=== PATIENT | male | born 1980 | race Caucasian/White ===

== ENCOUNTER 2024-07-05 05:45 | Day surgery (SDC) | payer BC ==
[2024-07-01 16:10] VITALS: BP 137/79
[2024-07-01 16:21] VITALS: BP 137/79
[~2024-07-05] VITALS: Ht 182.9 cm; Wt 95.5 kg
[~2024-07-05 05:45] MED LIST: LACTATED RINGER'S 1,000 ML IV SCH
[2024-07-05 05:58] VITALS: BP 121/75
[2024-07-05] MEDS ORDERED: propofoL 200 MG/20 ML VIAL ONE (06:40)
[2024-07-05] MEDS ORDERED: ondansetron HCL 4 MG/2 ML VIAL ONE (06:40)
[2024-07-05] MEDS ORDERED: LACTATED RINGER'S 1,000 ML IV ONE (06:40)
[2024-07-05] MEDS ORDERED: FAMOTIDINE 20 MG/ 2 ML VIAL ONE (06:40)
[2024-07-05] MEDS ORDERED: METOCLOPRAMIDE HCL 10 MG/2 ML SDV ONE (06:40)
[2024-07-05] MEDS ORDERED: KETOROLAC TROMETHAMINE 30 MG/ML VIAL ONE (06:40)
[2024-07-05] MEDS ORDERED: DEXAMETHASONE SOD PHOS 4 MG/ML VIAL ONE (06:40)
[2024-07-05] MEDS ORDERED: fentaNYL citrate 100 MCG/2 ML VIAL ONE (06:40)
[2024-07-05] MEDS ORDERED: MIDAZOLAM HCL 2 MG/2 ML VIAL ONE (06:41)
[2024-07-05] MEDS ORDERED: LIDOCAINE HCL 2% 5 ML SDV ONE (06:41)
[2024-07-05] MEDS ORDERED: LIDOCAINE HCL 1% 5 ML SDV INJ ONE (07:00)
[2024-07-05] MEDS ORDERED: IBLOOD GLUCOSE TEST STRIP 1 EA TEST VI PRN ×2 (07:00→07:15)
[2024-07-05] MEDS ORDERED: CEFAZOLIN SODIUM 2 GM/20 ML SYR IV SCH (07:00)
[2024-07-05] MEDS ORDERED: ondansetron HCL 4 MG/2 ML VIAL IV PRN ×2 (07:15→07:30)
[2024-07-05] MEDS ORDERED: NALOXONE HCL 0.4 MG SYR IV PRN (07:15)
[2024-07-05] MEDS ORDERED: METOCLOPRAMIDE HCL 10 MG/2 ML SDV IV PRN (07:15)
[2024-07-05] MEDS ORDERED: fentaNYL citrate 50 MCG/ML SDV IV PRN (07:15)
[2024-07-05] MEDS ORDERED: MORPHINE SULFATE 10 MG/ML VIAL IV PRN (07:15)
[2024-07-05] MEDS ORDERED: PROCHLORPERAZINE EDISYLATE 10 MG/2 ML VIAL IV PRN (07:15)
[2024-07-05] MEDS ORDERED: droPERidol 5 MG/2 ML VIAL IV PRN (07:15)
[2024-07-05] MEDS ORDERED: HYDROmorphone HCL 1 MG/ML SYR IV PRN (07:30)
[2024-07-05] MEDS ORDERED: OXYCODONE/APAP 5/325 TAB PO PRN (07:30)
[2024-07-05] MEDS ORDERED: MORPHINE SULFATE 10 MG/ML VIAL ONE (07:36)
--- NOTE | 2024-07-05 07:43 | NUR ---
PT GONE FOR PROCEDURE. VISITED WITH FAMILY MEMBER IN ROOM. NO SIGNS OF ANXIETY, DENIED IMMEDIATE NEEDS. BATTERY CHECKER PROVIDED SUPPORTIVE PRESENCE, HOSPITALITY, PRAYER, FACILITATED INTERACTION WITH THERAPY ANIMAL.
[2024-07-05 09:50] VITALS: BP 143/79
--- NOTE | 2024-07-05 09:50 | NUR ---
PT ARRIVED BACK TO DS AAOX3 ON RA. PT ANSWERS QUESTIONS APPROPRIATELY AND IS ABLE TO MAKE HIS NEEDS KNOWN. REPORT RECIEVED FROM WEATHERIZATION COORDINATOR. PTS IN ROOM UPON HIS RETURN. VS TAKEN. IV SITE ASSESSED, PATENT, AND INFUSING LR PER ORDERS. SURGICAL SITE VISUALIZED WITH WEATHERIZATION COORDINATOR. SURGICAL SITE IS WELL APPROXIMATED WITH DERMABOND. GAUZE FLUFFS IN PLACE OVER INCISION AND JOCK STRAP IN PLACE. NO DRAINAGE IS SEEN. ICE PRESENT TO SCROTUM WELL. PT DENIES PAIN OR NAUSEA WHEN ASKED. PT GIVEN JUICE, ICE WATER, AND PUDDING. ALL QUESTIONS ANSWERED. CALL LIGHT WITHIN REACH, BED IN LOW POSITION, WHEELS LOCKED, BILAT RAILS IN PLACE FOR SAFETY.
--- NOTE | 2024-07-05 10:03 | NUR ---
07/05/24 Carmen Tijerina 0921- PT ARRIVES TO THE PACU WITH A NATURAL AIRWAY. PT IS MOVING ARMS AROUND AND REMOVING HIS MASK INDEPENDENTLY. PT IS NOT FOLLOWING DIRECTIONS. MONITORS PUT IN PLACE. PT IS IN SEMI FOWLERS. LR INFUSING IN R HAND. VSS. SCROTUM SHOWS NO DRAINAGE. 0925- PT IS ABLE TO FOLLOW DIRECTIONS. PT REORIENTED TO PACU. PT DENIES PAIN AND NAUSEA. PT RESTING. 0930- PT IS GIVEN ICE FOR OVER THE SCROTUM PER MD. PT CONTINUES TO DENY PAIN AND NAUSEA. 0950- PT IS BROUGHT BACK TO DS. PT GIVEN APPLE JUICE AND PUDDING. PT CONTINUES TO DENY PAIN AND NAUSEA. VITAL SIGNS ARE STABLE. BEDSIDE REPORT GIVEN TO REBECA ATKINSON. NO QUESTIONS OR CONCERNS. SURGICAL INCISION ASSESSED WITH GABRIELE RN, AND NO DRAINAGE NOTED. CARE FOR PT HANDED OVER AT THIS TIME.
[2024-07-05] MEDS ORDERED: CEPHALEXIN500 M1 PO (10:16)
[2024-07-05] MEDS ORDERED: OXYCODONE HCL5 MG PO (10:17)
[2024-07-05] MEDS ORDERED: SEVOFLURANE 250 ML BTL INH ONE (10:19)
[2024-07-05 10:58] VITALS: BP 142/88
--- NOTE | 2024-07-05 11:50 | NUR ---
PT DISCHARGED TO HOME WITH INSTRUCTIONS ON MEDICATION, FOLLOW-UP, ACTIVITY, WHEN TO CONTACT THE MD, WOUND CARE, AND DIET. PT VERBALIZED UNDERSTANDING AND LEFT FOR HOME WITH AND ALL BELONGINGS.
--- NOTE | 2024-07-08 16:46 | PATH ---
[facility] [address] [place], [place] [address] Signed SPECIMEN(S): A LEFT TESTIS SPECIMEN SOURCE: A. 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 COMMENT: As part of [email or web address] Quality Improvement Program, this case was reviewed by another member of our pathology staff. JVR:CRYSTAL:romeo MICROSCOPIC EXAMINATION: Histologic sections of all submitted blocks are examined by light microscopy. These findings, together with the gross examination, support the pathologic diagnosis. GROSS DESCRIPTION: The specimen, labeled and designated "Ian Locke, left testicle," is received in formalin and consists of 3.2 x 2.2 x 1.9 cm testis, 4.5 x 1.2 x 0.7 cm epididymis, and the specimen weighs 8 g. The tunica vaginalis pink-zhong membranous with a few adhesions and the tunica albuginea white and smooth. The testis bivalved to reveal orange stringy cut surfaces. No grossly identifiable lesions seen. Bulb Planter sections are submitted. Cassette Summary: (A1) testicular parenchyma with respect to epididymis (A2-A3) additional sales representative uniforms sections of the testis JM (under the direct supervision of a pathologist) The Gross Description was prepared using a voice recognition system. The report was reviewed for accuracy; however, sound-alike word errors, addition and/or deletions may occur. If there is any question about this report, please contact Client Services. PERFORMING LABORATORY: Technical component was performed by [email or web address], Clau Smith, PATIENT NAME: HENRIETTA LOCKE PATHOLOGY DATE OF : 76 REPORT #: [id number] PHYSICIAN: [facility] PCP: KIM BERKOWITZ MD REPORT IS CONFIDENTIAL AND NOT TO BE RELEASED WITHOUT AUTHORIZATION [facility] [address], [place] [address] [place] [address] (CLIA# [id number]). Diagnostician: Hua Sandoval MD Pathologist Electronically Signed 07/08/2024 Copies: ~ PATIENT NAME: HENRIETTA LOCKE PATHOLOGY DATE OF : 76 REPORT #: [id number] PHYSICIAN: [facility] PCP: KIM BERKOWITZ MD REPORT IS CONFIDENTIAL AND NOT TO BE RELEASED WITHOUT AUTHORIZATION
== END 2024-07-05 11:50 | disposition home or self-care (01) ==
LOC: DS 05:45 → OPS 05:45 → DS 07:30 → OPS 07:30
PROVIDERS: ATTEND Urology
PROC: 0VBB0ZZ Excision of Left Testis, Open Approach (ICD-10-PCS; principal; 2024-07-05 07:30)
DX: Q53.10 Unspecified undescended testicle, unilateral (principal); N50.0 Atrophy of testis
CPT/HCPCS: 00920; J0690; J1100; J1885; J2003; J2250; J2270; J2405; J2704; J2765; J3010; J7121